=== PATIENT | female | born 1995 | race Hispanic/Latino ===

== ENCOUNTER 2017-12-17 16:58 | Emergency (ER) | payer BC ==
[2017-12-17] MEDS ORDERED: Ketorolac Tromethamine 30 MG/ML VIAL ONE (18:48)
== END 2017-12-17 19:08 | disposition home or self-care (01) ==
LOC: ERS 16:58
DX: S16.1XXA Strain of muscle, fascia and tendon at neck level, initial encounter (principal); F32.9 Major depressive disorder, single episode, unspecified; V89.2XXA Person injured in unspecified motor-vehicle accident, traffic, initial encounter
CPT/HCPCS: 96372; J1885

== ENCOUNTER 2019-07-05 18:38 | Emergency (ER) | payer BC, SELFPAY ==
[2019-07-05] MEDS ORDERED: Ketorolac Tromethamine 30 MG/ML VIAL ONE (19:00)
--- NOTE | 2019-07-05 19:18 | RAD ---
PORTABLE CHEST: History: Right sided chest pain. No cough or fever. FINDINGS: Heart size and mediastinum are within normal limits. The lungs are clear of infiltrates. No significa nt bony findings. IMPRESSION: No active intrathoracic disease. POS: JULIEN
--- NOTE | 2019-07-08 14:03 | EKG ---
Test Reason : Blood Pressure : / mmHG Vent. Rate : 069 BPM Atrial Rate : 069 BPM P-R Int : 150 ms QRS Dur : 082 ms QT Int : 372 ms P-R-T Axes : 043 076 038 degrees QTc Int : 398 ms Normal sinus rhythm with sinus arrhythmia Normal ECG Confirmed by LILY CALLAHAN, BRIDGET ([id number]), electronic news gathering editor [place] SNOW ([id number]) on 07/08/2019 2:03:04 PM Referred By: Confirmed By:BRIDGET BAUTISTA MD
== END 2019-07-05 19:47 | disposition home or self-care (01) ==
LOC: ERS 18:38
DX: R09.1 Pleurisy (principal); F32.9 Major depressive disorder, single episode, unspecified
CPT/HCPCS: 71045; 93005; 96372; J1885